=== PATIENT | female | born 2005 | race Caucasian/White ===

== ENCOUNTER 2023-06-02 11:07 | Emergency (ER) | payer OTHER ==
[~2023-06-02] VITALS: Ht 160 cm; Wt 50.0 kg
[2023-06-02 11:19] VITALS: O2SAT 100
[2023-06-02] MEDS ORDERED: ACETAMINOPHEN 325MG TABLET PO ONE (12:15)
[2023-06-02] MEDS ORDERED: NAPR375T5 MT (16:15)
[2023-06-02] MEDS ORDERED: LIDO700A15 TP (16:15)
[2023-06-02] MEDS ORDERED: ACET-2708 MT (16:15)
[2023-06-02 16:35] VITALS: BP 127/84; PULSE 92; RESP 16; TEMP 98.2
== END 2023-06-02 16:36 | disposition home or self-care (01) ==
LOC: ER 11:30
DX: S00.83XA Contusion of other part of head, initial encounter (principal); S80.02XA Contusion of left knee, initial encounter; S80.01XA Contusion of right knee, initial encounter; S50.312A Abrasion of left elbow, initial encounter; S50.311A Abrasion of right elbow, initial encounter; Y08.89XA Assault by other specified means, initial encounter; Y93.89 Activity, other specified; Y92.89 Other specified places as the place of occurrence of the external cause; Y99.8 Other external cause status
CPT/HCPCS: 72128; 73560; 81025; 82962; 99284

== ENCOUNTER 2024-03-30 12:30 | Emergency (ER) | payer SELFPAY ==
[~2024-03-30] VITALS: Ht 157.5 cm; Wt 58.0 kg
[~2024-03-30 12:30] MED LIST: ACET-2708 MT; LIDO700A15 TP; NAPR375T5 MT
[2024-03-30 12:31] VITALS: O2SAT 98
[2024-03-30] MEDS: MORPHINE SULFATE 4 MG/ML INJ (FOR IV/IM USE) IM ONE (13:07)
[2024-03-30] MEDS ORDERED: IBUP-2029 MT (14:46)
[2024-03-30 15:08] VITALS: BP 103/65; PULSE 62; RESP 15; TEMP 98.6
== END 2024-03-30 15:10 | disposition home or self-care (01) ==
LOC: ER 12:30
DX: S42.031A Displaced fracture of lateral end of right clavicle, initial encounter for closed fracture (principal); V98.8XXA Other specified transport accidents, initial encounter; Y93.89 Activity, other specified; Y92.89 Other specified places as the place of occurrence of the external cause; Y99.8 Other external cause status
CPT/HCPCS: 99284; 73000; 73030; 96372; J2270